=== PATIENT | male | born 1945 | race Caucasian/White ===

== ENCOUNTER 2020-06-21 10:32 | Emergency (ER) | payer OTHER, MEDICARE ==
[~2020-06-21] VITALS: Ht 188 cm; Wt 77.1 kg
[~2020-06-21 10:32] MED LIST: ASPI81EC PO; CLON1 PO; GABA300 PO; OMEP20ER PO; RANI150 PO
[2020-06-21 11:04] LABS: BASOPHILS ABSOLUTE AUTO 0.06 K/mm3 (0.00-0.23); BASOPHILS PERCENT AUTO 1 % (0-2); EOSINOPHILS PERCENT AUTO 3 % (0-6); Hematocrit 41.4 % (37.0-53.0); Hemoglobin 14.1 g/dL (13.5-17.5); IMMATURE GRAN ABSOLUTE AUTO 0.02 K/mm3 (0.00-0.10); IMMATURE GRAN PERCENT AUTO 0 % (0-1); LYMPHOCYTES ABSOLUTE AUTO 2.38 K/mm3 (0.84-5.20); LYMPHOCYTES PERCENT AUTO 30 % (21-46); MONOCYTES ABSOLUTE AUTO 0.86 K/mm3 (0.16-1.47); MONOCYTES PERCENT AUTO 11 % (4-13); Mean Corpuscular HGB 29.6 pg (26.0-34.0); Mean Corpuscular HGB Conc 34.1 g/dL (31.5-36.5); Mean Corpuscular Volume 87 fL (80-100); Mean Platelet Volume 9.2 fL (9.1-12.4); NEUTROPHILS ABSOLUTE AUTO 4.34 K/mm3 (1.96-9.15); NEUTROPHILS PERCENT AUTO 55 % (41-73); Platelet Count 211 K/mm3 (150-400); RDW Standard Deviation 41.6 fL (35.1-46.3); Red Blood Cell Count 4.76 M/mm3 (4.30-5.90); White Blood Cell Count 7.86 K/mm3 (4.00-11.30)
[2020-06-21 11:22] LABS: Alanine Aminotransfer (ALT/SGP 28 U/L (12-78); Albumin, Blood 3.7 g/dL (3.4-5.0); Albumin/Globulin Ratio 0.8 (0.8-1.8); Alk Phos 64 U/L (50-136); Anion Gap 6 mmol/L (6-16); Aspartate Aminotrans (AST/SGOT 25 U/L (12-37); Bilirubin, Total 0.5 mg/dL (0.1-1.0); Blood Urea Nitrogen 11 mg/dL (8-24); Bun/Creatinine Ratio 18.8 (12.0-20.0); CO2, Blood 26 mmol/L (21-32); Calcium, Blood 9.2 mg/dL (8.5-10.1); Chloride, Blood 101 mmol/L (98-108); Creatinine, Blood 0.58 mg/dL (0.60-1.20); Globulin, Blood 4.8 g/dL (2.2-4.0); Glomerular Filtration Rate >60 (60-); Glucose, Blood 127 mg/dL (70-99); Potassium, Blood 3.6 mmol/L (3.5-5.5); Sodium, Blood 133 mmol/L (136-145); Total Protein, Blood 8.5 g/dL (6.4-8.2); Troponin I <0.015 ng/mL (0.000-0.040)
[2020-06-21] MEDS ORDERED: PAROXETINE7.5 MG PO (13:22)
[2020-06-21] MEDS ORDERED: HYDHCL25 PO (13:25)
[2020-06-21] MEDS ORDERED: AMLO5 PO (13:26)
[2020-06-21] MEDS ORDERED: METO25ER PO (13:27)
== END 2020-06-21 14:35 | disposition home or self-care (01) ==
LOC: ER 10:32
PROVIDERS: Emergency Medicine
DX: I10 Essential (primary) hypertension (principal); R07.9 Chest pain, unspecified; Z79.82 Long term (current) use of aspirin; Z79.899 Other long term (current) drug therapy
CPT/HCPCS: 36415; 71046; 80053; 83690; 84484; 85025; 93005; 93010; 99285-25

== ENCOUNTER 2021-11-21 07:45 | Day surgery (SDC) | payer OTHER ==
[~2021-11-21] VITALS: Ht 188 cm; Wt 76.2 kg
[~2021-11-21 07:45] MED LIST changes: +ALBU90OI INH; +AMLO5 PO; +ARTIFICIAL TEA1 EAC1 BOTHEYES; +ASPI325 PO; -ASPI81EC PO; +Aspir 8181 MG PO; +CLON.5 PO; +HYDHCL25 PO; +Lopressor 25 mg25 MG PO; +METO25ER PO; +PAROXETINE7.5 MG PO; +ROSU10TA PO; +VENL75ER PO; +Voltaren100 GM TOP
--- NOTE | 2021-11-21 12:10 | NUR ---
PATIENT RETURNED FROM THE [facility] VIA RECLINER, PLACED ON THE MONITOR AND VVS. SBAR RECEIVED FROM TITA DELGADO. RIGHT RADIAL BAND IN PLACE WITH 17 ML OF AIR IN THE BAND. NO PAIN NOTED FROM THE PAITENT.
[2021-11-21] MEDS ORDERED: CLOP75 PO (12:37)
--- NOTE | 2021-11-21 13:26 | NUR ---
1245 MANUAL PRESSURE HELD TO THE RIGHT RADIAL DISTAL TO THE PRESENT TR BAND DUE TO DEVELOPING HEMATOMA. DECOMPRESSED HEMATOMA. SECOND TR BAND ATTEMPTED. BUT REMOVED AND ORIGINAL TR BAND WAS REPOSITIONED. HEMATOMA WAS RESOLVED. DR. SMITH WAS NOTIFIED. CONTINUE RTO MONITOR.
--- NOTE | 2021-11-21 13:29 | NUR ---
1330 LUNCH SERVED ADN PATIENT ATE. RIGHT RADIAL STABLE AND VVS STABLE ALSO.
--- NOTE | 2021-11-21 15:51 | NUR ---
1500 BEGAN TAKING AIR OUT OF THE TR BAND. OLD HEMATOMA STILL WITH BRUISING, MARKED. NO BLEEDING NOTED.
--- NOTE | 2021-11-21 15:55 | NUR ---
1550 REVIEWED DISCHARGE INSTRUCTIONS WITH THE PATIENT AND HIS . PATIENT WAS GIVEN PLAVIX 300 MG AND DOSE WAS OPENED AND DIVIDED FOR FOUR DOSES. 75 MG PO ORAL DAILY. TR BAND WAS REMOVED AND SITE CLEANED AND WHITE BOARD REPLACED. PATIENT UP OFF MONITOR AND DRESSED. GATHERED ALL BELONGINGS.
--- NOTE | 2021-11-21 16:06 | NUR ---
1600 PATIENT DISCHARGED HOME AMBULATORY WITH .
== END 2021-11-21 15:30 | disposition home or self-care (01) ==
LOC: MHTC 07:45
DX: I25.118 Atherosclerotic heart disease of native coronary artery with other forms of angina pectoris (principal); R06.00 Dyspnea, unspecified; R55 Syncope and collapse; R94.31 Abnormal electrocardiogram [ECG] [EKG]; R94.39 Abnormal result of other cardiovascular function study; I10 Essential (primary) hypertension; E78.5 Hyperlipidemia, unspecified; Z87.891 Personal history of nicotine dependence
CPT/HCPCS: 76937; 85347; 92920; 93454; 93571; 93572; 99152; 99153; A9270; C1725; C1769; C1874; C1887; C1894; C9600; J0360; J1644; J2250; J3010; J7030; J7050; Q9967

== ENCOUNTER 2021-11-23 07:23 | Emergency (ER) | payer OTHER ==
[~2021-11-23] VITALS: Ht 188 cm; Wt 77.1 kg
[~2021-11-23 07:23] MED LIST changes: +CLOP75 PO
[2021-11-23 08:02] LABS: BASOPHILS ABSOLUTE AUTO 0.04 K/mm3 (0.00-0.23); BASOPHILS PERCENT AUTO 1 % (0-2); EOSINOPHILS ABSOLUTE AUTO 0.18 K/mm3 (0.00-0.68); EOSINOPHILS PERCENT AUTO 3 % (0-6); Hematocrit 34.3 % (37.0-53.0); Hemoglobin 12.3 g/dL (13.5-17.5); IMMATURE GRAN ABSOLUTE AUTO 0.02 K/mm3 (0.00-0.10); IMMATURE GRAN PERCENT AUTO 0 % (0-1); LYMPHOCYTES PERCENT AUTO 19 % (21-46); MONOCYTES ABSOLUTE AUTO 0.67 K/mm3 (0.16-1.47); MONOCYTES PERCENT AUTO 9 % (4-13); Mean Corpuscular HGB Conc 35.9 g/dL (31.5-36.5); Mean Corpuscular Volume 86 fL (80-100); Mean Platelet Volume 9.1 fL (9.1-12.4); NEUTROPHILS ABSOLUTE AUTO 4.98 K/mm3 (1.96-9.15); NEUTROPHILS PERCENT AUTO 68 % (41-73); Platelet Count 163 K/mm3 (150-400); RDW Coefficient Variation 13.1 % (11.7-14.2); RDW Standard Deviation 41.4 fL (35.1-46.3); Red Blood Cell Count 3.97 M/mm3 (4.30-5.90); White Blood Cell Count 7.29 K/mm3 (4.00-11.30)
[2021-11-23 08:24] LABS: Alanine Aminotransfer (ALT/SGP 42 U/L (12-78); Albumin, Blood 3.9 g/dL (3.4-5.0); Alk Phos 57 U/L (50-136); Anion Gap 3 mmol/L (6-16); Aspartate Aminotrans (AST/SGOT 31 U/L (12-37); Bilirubin, Total 0.5 mg/dL (0.1-1.0); Blood Urea Nitrogen 12 mg/dL (8-24); Bun/Creatinine Ratio 19.2 (12.0-20.0); CO2, Blood 29 mmol/L (21-32); Calcium, Blood 9.4 mg/dL (8.5-10.1); Chloride, Blood 97 mmol/L (98-108); Creatinine, Blood 0.62 mg/dL (0.60-1.20); Globulin, Blood 3.9 g/dL (2.2-4.0); Glomerular Filtration Rate >60 (60-); Glucose, Blood 115 mg/dL (70-99); Potassium, Blood 4.4 mmol/L (3.5-5.5); Sodium, Blood 129 mmol/L (136-145); Total Protein, Blood 7.8 g/dL (6.4-8.2)
== END 2021-11-23 10:43 | disposition home or self-care (01) ==
LOC: ER 07:23
PROVIDERS: Emergency Medicine
DX: R55 Syncope and collapse (principal); R56.9 Unspecified convulsions; R77.8 Other specified abnormalities of plasma proteins; Z88.8 Allergy status to other drugs, medicaments and biological substances; Z79.899 Other long term (current) drug therapy; Z79.82 Long term (current) use of aspirin; Z86.73 Personal history of transient ischemic attack (TIA), and cerebral infarction without residual deficits
CPT/HCPCS: 36415; 70450; 71045; 80053; 84146; 84484; 85025; 93005; 93010; 99285-25

== ENCOUNTER 2022-01-30 08:22 | Inpatient (IN) | payer OTHER ==
[~2022-01-30] VITALS: Ht 185.4 cm; Wt 75.2 kg
[2022-01-30 08:57] LABS: BASOPHILS ABSOLUTE AUTO 0.03 K/mm3 (0.00-0.23); BASOPHILS PERCENT AUTO 0 % (0-2); EOSINOPHILS ABSOLUTE AUTO 0.01 K/mm3 (0.00-0.68); EOSINOPHILS PERCENT AUTO 0 % (0-6); Hematocrit 36.5 % (37.0-53.0); Hemoglobin 12.8 g/dL (13.5-17.5); IMMATURE GRAN ABSOLUTE AUTO 0.02 K/mm3 (0.00-0.10); IMMATURE GRAN PERCENT AUTO 0 % (0-1); LYMPHOCYTES ABSOLUTE AUTO 0.89 K/mm3 (0.84-5.20); LYMPHOCYTES PERCENT AUTO 12 % (21-46); MONOCYTES ABSOLUTE AUTO 0.47 K/mm3 (0.16-1.47); MONOCYTES PERCENT AUTO 6 % (4-13); Mean Corpuscular HGB 30.5 pg (26.0-34.0); Mean Corpuscular HGB Conc 35.1 g/dL (31.5-36.5); Mean Corpuscular Volume 87 fL (80-100); Mean Platelet Volume 9.8 fL (9.1-12.4); NEUTROPHILS ABSOLUTE AUTO 6.24 K/mm3 (1.96-9.15); NEUTROPHILS PERCENT AUTO 82 % (41-73); Platelet Count 189 K/mm3 (150-400); RDW Coefficient Variation 13.2 % (11.7-14.2); RDW Standard Deviation 42.1 fL (35.1-46.3); Red Blood Cell Count 4.19 M/mm3 (4.30-5.90); White Blood Cell Count 7.66 K/mm3 (4.00-11.30)
[2022-01-30 09:22] LABS: Magnesium, Blood 2.3 mg/dL (1.6-2.4)
[2022-01-30 09:23] LABS: Albumin, Blood 3.9 g/dL (3.4-5.0); Albumin/Globulin Ratio 0.9 (0.8-1.8); Bilirubin, Total 0.5 mg/dL (0.1-1.0); Bun/Creatinine Ratio 16.6 (12.0-20.0); Calcium, Blood 9.5 mg/dL (8.5-10.1); Creatinine, Blood 0.6 mg/dL (0.60-1.20); Globulin, Blood 4.4 g/dL (2.2-4.0); Potassium, Blood 5.1 mmol/L (3.5-5.5); Total Protein, Blood 8.3 g/dL (6.4-8.2)
--- NOTE | 2022-01-30 17:27 | NUR ---
BLADDER SCAN NOTE PT WAS EXPRESSING URGE TO VOID BUT INABILITY TO VOID UPON ARRIVAL TO PCU, THIS NURSE BLADDER SCANNED PT AND PER BLADDER SCAN, PT HAD >999ML. THIS NURSE CALLED DR. SANTACRUZ TO NOTIFY WITH NO ANSWER. BLADDER SCAN OCCURED AT 1725.
[2022-01-30 17:57] LABS: Appearance, Urine Clear (Clear); Bilirubin, Urine Neg (Neg); Blood, Urine 4+ (Neg); Color, Urine Yellow (P-Yellow); Glucose Qualitative, Urine Neg (Neg); Ketones, Urine Neg (Neg); Leukocyte Esterase, Urine Neg (Neg); Nitrite, Urine Neg (Neg); Protein, Urine 3+ (Neg); Urobilinogen, Urine NORM (Normal)
[2022-01-30 18:07] LABS: Bacteria Rare /hpf; Squamous Epithelial Cells Rare /hpf (Few); White Blood Cells, Urine 0-2 /hpf (0-5)
[2022-01-30 18:10] LABS: U Amphetamine Screen Not Detected; U Barbituate Screen Not Detected; U Benzodiazapine Screen DETECTED; U Buprenorphine Screen Not Detected; U Cannabinoids Screen DETECTED; U Cocaine Screen Not Detected; U Methadone Screen Not Detected; U Methamphetamine Screen Not Detected; U Opiates Screen Not Detected; U Oxycodone Screen Not Detected; U Phencyclidine Screen Not Detected; U Propoxyphene Screen Not Detected
--- NOTE | 2022-01-30 19:04 | NUR ---
SHIFT SUMMARY PT ARRIVED TO PCU AT 1700, WAS AT BEDSIDE. HR IN 90-110'S PER TELE REPORT. BP STABLE, SPO2 >95% VIA ROOM AIR. HE WAS ALERT TO SELF, PLACE, AND BUT DID NOT KNOW THE DAY. UP ADMISSION TO PCU PT KEPT SAYING THAT HE NEEDED TO URINATE BUT COULD NOT. THIS NURSE BLADDER SCANNED PT, SEE PREVIOUS NOTE. QUEZADA CATHETER IS IN PLACE AND DRAINING WITH GRAVITY. PT HAS A LEFT AC IV AND A RIGHT FOREARM IV THAT IS SALINE LOCKED. SIEZURE PRECAUTIONS TAKEN. SINCE QUEZADA PLACEMENT, PT HAS BEEN SLEEPING AND APPEARS COMFORTABLE. CALL [facility] IN [place], BED ALARM ON. REPORT GIVEN TO RODNEY RIVERS.
[2022-01-31 04:14] LABS: BASOPHILS ABSOLUTE AUTO 0.04 K/mm3 (0.00-0.23); BASOPHILS PERCENT AUTO 1 % (0-2); EOSINOPHILS ABSOLUTE AUTO 0.03 K/mm3 (0.00-0.68); EOSINOPHILS PERCENT AUTO 0 % (0-6); Hematocrit 33.7 % (37.0-53.0); Hemoglobin 11.7 g/dL (13.5-17.5); IMMATURE GRAN ABSOLUTE AUTO 0.02 K/mm3 (0.00-0.10); IMMATURE GRAN PERCENT AUTO 0 % (0-1); LYMPHOCYTES ABSOLUTE AUTO 1.57 K/mm3 (0.84-5.20); LYMPHOCYTES PERCENT AUTO 18 % (21-46); MONOCYTES ABSOLUTE AUTO 1.01 K/mm3 (0.16-1.47); MONOCYTES PERCENT AUTO 12 % (4-13); Mean Corpuscular HGB 30.4 pg (26.0-34.0); Mean Corpuscular HGB Conc 34.7 g/dL (31.5-36.5); Mean Corpuscular Volume 88 fL (80-100); Mean Platelet Volume 9.3 fL (9.1-12.4); NEUTROPHILS ABSOLUTE AUTO 5.89 K/mm3 (1.96-9.15); NEUTROPHILS PERCENT AUTO 69 % (41-73); Platelet Count 160 K/mm3 (150-400); RDW Coefficient Variation 13.4 % (11.7-14.2); RDW Standard Deviation 42.5 fL (35.1-46.3); Red Blood Cell Count 3.85 M/mm3 (4.30-5.90); White Blood Cell Count 8.56 K/mm3 (4.00-11.30)
[2022-01-31 04:42] LABS: Albumin, Blood 3.5 g/dL (3.4-5.0); Bilirubin, Total 0.9 mg/dL (0.1-1.0); Bun/Creatinine Ratio 11.9 (12.0-20.0); Calcium, Blood 9.1 mg/dL (8.5-10.1); Creatinine, Blood 0.67 mg/dL (0.60-1.20); Globulin, Blood 3.6 g/dL (2.2-4.0); Magnesium, Blood 2.2 mg/dL (1.6-2.4); Potassium, Blood 3.6 mmol/L (3.5-5.5); Total Protein, Blood 7.1 g/dL (6.4-8.2)
--- NOTE | 2022-01-31 05:40 | NUR ---
PROJECT SAFETY MANAGER SUMMARY PT IS AXO X3 BUT DOES NOT KNOW THE DATE OR WHY HE IS IN THE HOSPITAL. THE PT HAS HAD NO SEIZURE ACTIVITY THIS SHIFT AND SLEPT FOR MOST OF THE NIGHT. TELE SHOWING SR IN THE 80'S W OCCASIONAL PVC'S. BP WNL AND STABLE. PT AFEBRILE. O2 SATS >92% ON RM AIR. NS RUNNING AT 125ML/HR. QUEZADA PATENT AND DRAINING CLEAR YELLOW URINE, DOOD OUTPUT THIS SHIFT SEE I&O'S FOR DETAILS. WILL REPORT TO ONCOMING RN.
[2022-01-31] MEDS ORDERED: LEVETIRACETAM1000 M1 PO (15:13)
== END 2022-01-31 15:51 | disposition home or self-care (01) | DRG 100 ==
LOC: ER 08:22 → PCU 14:03
PROVIDERS: Nurse Practitioner Acute Care; Physician Assistant; ADMIT Internal Medicine
DX: G40.901 Epilepsy, unspecified, not intractable, with status epilepticus (principal); G92.8 Other toxic encephalopathy; I10 Essential (primary) hypertension; F41.9 Anxiety disorder, unspecified; K21.9 Gastro-esophageal reflux disease without esophagitis; I25.10 Atherosclerotic heart disease of native coronary artery without angina pectoris; E86.0 Dehydration; E78.5 Hyperlipidemia, unspecified; Z86.73 Personal history of transient ischemic attack (TIA), and cerebral infarction without residual deficits; Z95.5 Presence of coronary angioplasty implant and graft; Z79.02 Long term (current) use of antithrombotics/antiplatelets; Z79.82 Long term (current) use of aspirin; Z79.899 Other long term (current) drug therapy; Z88.6 Allergy status to analgesic agent; Z88.8 Allergy status to other drugs, medicaments and biological substances
CPT/HCPCS: 36415; 70450; 70553; 71045; 80053; 81001; 83735; 84146; 84443; 85025; 93005; 93010; 94762; 95819; 96365; 96375; 99285-25; A9270; A9579; J1953; J2060; J7030

== ENCOUNTER 2022-09-11 05:45 | Inpatient (IN) | payer OTHER ==
[~2022-09-11] VITALS: Ht 188 cm; Wt 76.9 kg
[~2022-09-11 05:45] MED LIST changes: +ASPI81CH PO; +Amlodipine Bes2.5 MG PO; +ENOX40I SC; +HYDR1TAB94 PO; +LEVETIRACETAM1000 M1 PO; +MIRALAX1713 PO; +TRAM50 PO
--- NOTE | 2022-09-11 06:30 | NUR ---
PT AMB TO DAY SURGERY USING WALKING WITH SLOW STEADY GAIT. PRESENT WITH PT. History, Chart, Medications and Allergies reviewed before start of procedure. Patient confirms NPO status and agrees with scheduled surgery. Pre-Op teaching done. Pt verbalizes understanding. Patient reports completing Chlorhexadine shower X2 prior to admission to hospital.
--- NOTE | 2022-09-11 07:30 | NUR ---
PT TAKEN BACK TO OR 4 BY WES Minor RN, PT GLASSES AND UPPER AND LOWER DENTURES PLACED IN TRAY IN RECOVERY ROOM ALONG WITH HIS WALKER AND BAG WITH HIS COAT.
--- NOTE | 2022-09-11 10:18 | NUR ---
09/11/22 1018 Divya Vega 18G IN RIGHT HAND AND 20G IN LEFT HAND BY KEYANA PEREA @ 1000. 2 UNITS OF BLOOD GIVEN, TYPE AND CROSS REDRAWN.
--- NOTE | 2022-09-11 14:57 | NUR ---
LATE ENTRY- PT TO PACU AFTER LONG SURGERY. ACP AND SURGEON DEEMED PT STABLE ENOUGH TO BE RECOVERED HERE IN PACU. PT HAD PREVIOUSLY BEEN CHANGED FROM SURGICAL FLOOR STATUS TO ICU STATUS AND A BED HAD BEEN SECURED. ONCE IN PACU PT BP TRENDING DOWN, MAP 50-60S, SATS GOOD ON RA, DRESSING ON LEFT HIP DRY AND INTACT WITH FOAM TAPE. FLUIDS WERE WIDE OPEN AND ANOTHER LR HUNG. PT PALE IN APPEARANCE AND SKIN COOL, HOB DOWN, PT VERY WIGGLY IN BED AND ADVISED TO LIE STILL. ADDUCTOR PILLOW WITH STRAPS ORDERED, AND SURGEON CHANGED STATUS BACK TO ICU. ICU AND URBAN ANTHROPOLOGIST NOTIFIED, AND SURGEON ORDERED STAT CT/ANGIOGRAM. I ACCOMPANIED PT TO RADIOLOGY WITH CONTINIOUS MONITORING IN PLACE. CT/ANGIOGRAM COMPLETED AND PT APPEARED TO HAVE TOLERATED THE PROCEDURE WELL. PT TALKING DURING ICU TRANSPORT. ONCE TO ICU PT JOKING WITH STAFF AND VSS. BLOOD PRESSURES MUCH BETTER AND PT'S COLOR IMPROVED. GUEST HOUSE MANAGER'S QUESTIONING WHETHER OR NOT PT NEEDS TO BE ICU STATUS. A CALL TO DR. MCCRAY WAS PLACED. DR MCCRAY NOTIFIED OF PT'S IMPROVED STATUS. DR MCCRAY OKAY SIVLIA PT BEING SENT TO SURGICAL FLOOR AFTER ALL. PT WAS THEN TRANSFERED TO SURGICAL FLOOR BY MYSELF AND DAVID GUEST HOUSE MANAGER. REPORT GIVEN TO SURGICAL FLOOR SERVICE ATTENDANT CAFETERIA. PT LEFT HIP DRESSING D&I, SCDS ON, CAP REFILL <3SEC, AND PEDAL PULSE WAS PALPABLE. BELONGINGS, TEETH, AND WALKER WERE BROUGHT TO ROOM, PTS AT BEDSIDE, POLAR PAC PROVIDED. PTS VSS, SURGICAL FLOOR RN TO ORDER STAT H&H, PT IN STABLE CONDITION UPON TRANSFERING.
[2022-09-11 15:33] LABS: Hematocrit 27.6 % (37.0-53.0); Hemoglobin 9.4 g/dL (13.5-17.5)
--- NOTE | 2022-09-11 16:15 | NUR ---
NO PEDAL PULSES W/PALPATION. UNABLE TO LOCATE WITH DOPPLER EITHER. DR GUEVARA NOTIFIED. DR GUEVARA IN CONTACT WITH DR MCCRAY, PLAN TO TX HIGHER LEVEL OF CARE FOR VASCULAR SURGEON OR INTERVENTIONAL RADIOLOGY. IMAGES PUSHED TO LAURE LLOYD AND DEXTER ESCOBEDO.
--- NOTE | 2022-09-11 19:30 | NUR ---
SHIFT SUMMARY PT HAS REMAINED STABLE SINCE ARRIVAL TO UNIT. MEASURMENT TO L THIGH AT 1800 53 CM, THIGH WITH SOME SWELLING SINCE ARRIVAL, NO INCREASED PAIN W/PALPATION. VSS. PT REPORTS PAIN5/10. HIP ABDUCTOR PILLOW IN PLACE PER MD ORDER, NWB AT THIS TIME. QUEZADA PATENT, DRAINING CLEAR YELLOW URINE. SCD AND POLAR PACK IN PLACE. PLAN AT THIS TIME IS TO CONTINUE TO MONITOR VS AND HGB, CONTINUE TO CHECK MEASURMENTS TO L THIGH Q4H.
[2022-09-11 22:09] LABS: Hematocrit 23.1 % (37.0-53.0); Hemoglobin 8.2 g/dL (13.5-17.5)
--- NOTE | 2022-09-12 01:26 | NUR ---
LEFT THIGH MEASURING 54CM. PT CONT TO REPORT MINIMAL PAIN. LEFT THIGH IS PINK, WARM, AND SOFT TO THE TOUCH. NO BRUISING OR BLEEDING NOTED. PT'S LEFT FOOT FEELS WARMER THAN IT DID AT START OF SHIFT. PEDAL PULSE STILL FAINT, BUT PALPABLE. PT BOOSTED IN BED FOR COMFORT. WILL CONT TO MONITOR.
[2022-09-12 04:46] LABS: BASOPHILS ABSOLUTE AUTO 0.03 K/mm3 (0.00-0.23); BASOPHILS PERCENT AUTO 0 % (0-2); EOSINOPHILS ABSOLUTE AUTO 0.01 K/mm3 (0.00-0.68); EOSINOPHILS PERCENT AUTO 0 % (0-6); Hematocrit 20.5 % (37.0-53.0); Hemoglobin 7.2 g/dL (13.5-17.5); IMMATURE GRAN ABSOLUTE AUTO 0.03 K/mm3 (0.00-0.10); IMMATURE GRAN PERCENT AUTO 0 % (0-1); LYMPHOCYTES ABSOLUTE AUTO 2.32 K/mm3 (0.84-5.20); LYMPHOCYTES PERCENT AUTO 21 % (21-46); MONOCYTES ABSOLUTE AUTO 1.16 K/mm3 (0.16-1.47); MONOCYTES PERCENT AUTO 11 % (4-13); Mean Corpuscular HGB Conc 35.1 g/dL (31.5-36.5); Mean Corpuscular Volume 83 fL (80-100); NEUTROPHILS ABSOLUTE AUTO 7.28 K/mm3 (1.96-9.15); NEUTROPHILS PERCENT AUTO 67 % (41-73); Platelet Count 116 K/mm3 (150-400); RDW Coefficient Variation 16.3 % (11.7-14.2); RDW Standard Deviation 48.9 fL (35.1-46.3); Red Blood Cell Count 2.48 M/mm3 (4.30-5.90); White Blood Cell Count 10.83 K/mm3 (4.00-11.30)
--- NOTE | 2022-09-12 04:51 | NUR ---
SHIFT SUMMARY NO ACUTE CHANGES THIS SHIFT. L THIGH CIRCUMFERENCE IS AT 54CM. LEFT LEG REMAINS PINK, WARM, AND SOFT TO THE TOUCH. DRESSING TO LEFT HIP REMAINS CDI WITH POLAR PACK IN PLACE. 2 ROXICODONE + TYLENOL FOR PAIN MANAGEMENT. NAUSEA X1 AND ZOFRAN EFFECTIVE. QUEZADA DRAINING YELLOW URINE. TELE IN PLACE. USES CALL LIGHT APPROPRIATELY.
[2022-09-12 05:37] LABS: Bun/Creatinine Ratio 19.7 (12.0-20.0); Calcium, Blood 8.1 mg/dL (8.5-10.1); Creatinine, Blood 0.71 mg/dL (0.60-1.20); Magnesium, Blood 1.5 mg/dL (1.6-2.4); Potassium, Blood 4.3 mmol/L (3.5-5.5)
--- NOTE | 2022-09-12 10:55 | NUR ---
AT 0919 RECIEVED CALL FROM TELEMETRY, PT WITH NEW RUN OF TRAVIS STARTING AT 0901 AND SUSTAINING. VS OBTAINED, HR IN 40'S, PT DENIES CP, REPORTS "NOT FEELING WELL" BUT FEELS IT IS MORE RELATED TO PAIN MEDICATION. DR GUEVARA NOTIFED, NEW ORDER TO TRANSFUSE 1 UNIT PRBC. ORDER FOR EKG THAT WAS DONE AND RESULTS CALLED TO PAOLA-ORIGINAL ON FRONT OF CHART. MEASURMENTS ON L LEG MID THIGH 55CM. INCREASED FIRMNESS BUT HAS NO INCREASED PAIN OTHER THAN AT INSERTION SITE. DRESSING C/D/I. FAINT PEDAL PULSE PRESENT IN LLE. FOOT COOL BUT WARMER THEN LAST NIGHT. PT COLOR IMPROVED. BLOOD TRANSFUSING AT THIS TIME.
[2022-09-12 15:09] LABS: Hematocrit 22.1 % (37.0-53.0); Hemoglobin 7.9 g/dL (13.5-17.5)
--- NOTE | 2022-09-12 17:50 | NUR ---
SIMONE DOPPLER STUDY ON LLE NEGATIVE
--- NOTE | 2022-09-12 19:19 | NUR ---
SHIFT SUMMARY PT POD 1 L TKA W/FEMORAL ARTERY BLEED. LEG CIRCUMFENCE 55CM. PT HAS BEEN PAINFUL, TRIALED NORCO WITH LITTLE IMPROVEMENT SO WILL TRY 10MG ROXICODONE AND TYLENOL AGIAN OVER NIGHT. PT WORKED WITH PT, UP TO CHAIR. ABDUCTOR PILLOW FOR SLEEP.
--- NOTE | 2022-09-13 00:39 | NUR ---
LEFT THIGH CIRCUMFERENCE REMAINS AT 56CM.
--- NOTE | 2022-09-13 04:45 | NUR ---
SHIFT SUMMARY NO ACUTE CHANGES THIS SHIFT. PT RESTED WELL. 2 ROXICODONE + TYLENOL FOR PAIN MANAGEMENT. POLAR PACK IN PLACE. LEFT HIP DRESSING REMAINS CDI. ADDUCTOR PILLOW IN PLACE WHILE SLEEPING. USING URINAL TO VOID. LEFT THIGH CIRCUMFERENCE REMAINS AT 56CM. USES CALL LIGHT APPROPRIATELY.
[2022-09-13 05:10] LABS: BASOPHILS ABSOLUTE AUTO 0.03 K/mm3 (0.00-0.23); BASOPHILS PERCENT AUTO 0 % (0-2); EOSINOPHILS ABSOLUTE AUTO 0.02 K/mm3 (0.00-0.68); EOSINOPHILS PERCENT AUTO 0 % (0-6); Hematocrit 18.8 % (37.0-53.0); Hemoglobin 6.7 g/dL (13.5-17.5); IMMATURE GRAN ABSOLUTE AUTO 0.03 K/mm3 (0.00-0.10); IMMATURE GRAN PERCENT AUTO 0 % (0-1); LYMPHOCYTES ABSOLUTE AUTO 1.85 K/mm3 (0.84-5.20); LYMPHOCYTES PERCENT AUTO 20 % (21-46); MONOCYTES ABSOLUTE AUTO 1.07 K/mm3 (0.16-1.47); MONOCYTES PERCENT AUTO 12 % (4-13); Mean Corpuscular HGB 29.3 pg (26.0-34.0); Mean Corpuscular HGB Conc 35.6 g/dL (31.5-36.5); Mean Corpuscular Volume 82 fL (80-100); Mean Platelet Volume 9.6 fL (9.1-12.4); NEUTROPHILS ABSOLUTE AUTO 6.29 K/mm3 (1.96-9.15); NEUTROPHILS PERCENT AUTO 68 % (41-73); Platelet Count 107 K/mm3 (150-400); RDW Coefficient Variation 15.8 % (11.7-14.2); RDW Standard Deviation 46.7 fL (35.1-46.3); Red Blood Cell Count 2.29 M/mm3 (4.30-5.90); White Blood Cell Count 9.29 K/mm3 (4.00-11.30)
[2022-09-13 05:42] LABS: Bun/Creatinine Ratio 18.9 (12.0-20.0); Calcium, Blood 8.4 mg/dL (8.5-10.1); Creatinine, Blood 0.64 mg/dL (0.60-1.20); Magnesium, Blood 1.7 mg/dL (1.6-2.4); Potassium, Blood 4.1 mmol/L (3.5-5.5)
[2022-09-13 17:44] LABS: Hematocrit 24.8 % (37.0-53.0); Hemoglobin 8.8 g/dL (13.5-17.5)
--- NOTE | 2022-09-13 18:59 | NUR ---
SHIFT SUMMARY PT A&OX4/ST108, POD2 L DAMIÁN, SURGICAL DRESSING DRY/INTACT, POSTERIOR PRECAUTIONS ABDUCTOR PILLOW IN PLACE. VOIDING/URINAL. PAIN MANAGED WITH OXY 10MG AND TYLENOL. PT RUSTY 1 UNIT PRBC THIS AM, WORKED WITH PHYSICAL AND OCCUPATIONAL THERAPY TODAY, UP TO CHAIR FOR SHORT TIME, REPORTS EXHAUSTION AFTER LUNCH SO BACK TO BED FOR LONG NAP. EDU/ENC/DEMONSTRATED INCENTIVE SPIROMETER AND PT REP UNDERSTANDING THE VALUE. WILL REPORT TO JENNY KAYE RN. REPORT PROVIDED TO SHANE RIVERS.
--- NOTE | 2022-09-14 01:45 | NUR ---
INCLUSION INTERN CALLED NURSE TO STATING PT HAD GOTTEN SELF OOB TO VOID AND DID NOT CALL FOR ASSIST.PT ALREADY IN BED WHEN I ENTERED ROOM.WHEN QUESTIONED, PT VERB HE KNOWS HE SHOULD HAVE CALLED, BUT WAS HURRYING TO VOID.PT STATES OOB AND BACK WITHOUT INCIDENT. NO PHYSICAL APPEARANCE OF CHANGE. REPLACED ABDUCTOR PILLOW AND TURNED BED ALARM ON FOR SAFETY.I DISCUSSED RISKS AND I QUESTIONED PT HE WAS ABLE TO ANSWER ALL APPROPRIATELY EXCEPT YEAR,THEN EVENTUALLY WAS ABLE TO COME UP WITH CORRECT YEAR WITH COAXING.PT TOOK KLONOPIN AT AND I QUESTION WHETHER INCIDENT COULD BE RELATED. WILL PASS INFO TO NEXT SHIFT.I NOTIFIED HELP DESK REP AND NURSING GENERAL OFFICE DISPATCHER FAVIAN RIVERS.
[2022-09-14 04:20] LABS: BASOPHILS ABSOLUTE AUTO 0.02 K/mm3 (0.00-0.23); BASOPHILS PERCENT AUTO 0 % (0-2); EOSINOPHILS ABSOLUTE AUTO 0.15 K/mm3 (0.00-0.68); EOSINOPHILS PERCENT AUTO 2 % (0-6); Hematocrit 23.2 % (37.0-53.0); Hemoglobin 8.3 g/dL (13.5-17.5); IMMATURE GRAN ABSOLUTE AUTO 0.05 K/mm3 (0.00-0.10); IMMATURE GRAN PERCENT AUTO 1 % (0-1); LYMPHOCYTES ABSOLUTE AUTO 1.56 K/mm3 (0.84-5.20); LYMPHOCYTES PERCENT AUTO 16 % (21-46); MONOCYTES ABSOLUTE AUTO 1.07 K/mm3 (0.16-1.47); MONOCYTES PERCENT AUTO 11 % (4-13); Mean Corpuscular HGB Conc 35.8 g/dL (31.5-36.5); Mean Corpuscular Volume 84 fL (80-100); Mean Platelet Volume 9.5 fL (9.1-12.4); NEUTROPHILS ABSOLUTE AUTO 6.71 K/mm3 (1.96-9.15); NEUTROPHILS PERCENT AUTO 70 % (41-73); Platelet Count 128 K/mm3 (150-400); RDW Coefficient Variation 15.2 % (11.7-14.2); RDW Standard Deviation 45.9 fL (35.1-46.3); Red Blood Cell Count 2.77 M/mm3 (4.30-5.90); White Blood Cell Count 9.56 K/mm3 (4.00-11.30)
--- NOTE | 2022-09-14 06:15 | NUR ---
SUMMARY PT REMAINS ALERT AND ORIENTED.NO FURTHER ATTEMPTS OOB AND HAS BEEN APPROPRIATE.NO BLEED FROM INC.VSS HAS HAD HTN
--- NOTE | 2022-09-14 07:29 | NUR ---
DAY RN AWARE OF POSSIBILITY KLONOPIN MAY HAVE BEEN PARTIALLY RESPONSIBLE FOR MILD CONFUSION AND AGREES TO LET DR KNOW.
--- NOTE | 2022-09-14 09:54 | NUR ---
"Spiritual Care | Nurse referral Pt. is awake sitting up in a recliner when he welcomes my visit. Pt. is pleasant, but unsettled about wanting to go home. Pt. displays evidence of being engaged in his recovery. Establish rapport and facilite a life review. Spouse arrives during visit. Prayed with Pt. Pt. verbalized gratitude for the spiritual care visit."
--- NOTE | 2022-09-14 18:01 | NUR ---
SHIFT SUMMARY PT A&OX4, VSS/RA, RUSTY PO, VOIDING/URINAL, AMB TO BRP AND INTO HALLWAY/UP TO CHAIR T/O SHIFT WITH BLE ELEVATED; ADD PILLOW BETWEEN BLE WHILE IN BED, TEDS/SCDS/POLAR GLENNY, PAIN MANAGED WITH TYLENOL AND OXY 5 MG PER EMAR. POD3 L DAMIÁN, AQUACEL CDI, LEFT THIGH 54 CM, LIGHT BRUISING, DENIES N&T. BOWEL CARE PROVIDED: AWAITING BM TO VERIFY THERE IS NO BLOOD, THEN THE PT WILL BE DC'D HOME WITH . WILL PROVIDE REPORT TO JENNY KAYE RN.
[2022-09-15 05:21] LABS: BASOPHILS ABSOLUTE AUTO 0.02 K/mm3 (0.00-0.23); BASOPHILS PERCENT AUTO 0 % (0-2); EOSINOPHILS PERCENT AUTO 1 % (0-6); Hematocrit 21.3 % (37.0-53.0); Hemoglobin 7.6 g/dL (13.5-17.5); IMMATURE GRAN ABSOLUTE AUTO 0.03 K/mm3 (0.00-0.10); IMMATURE GRAN PERCENT AUTO 0 % (0-1); LYMPHOCYTES ABSOLUTE AUTO 1.33 K/mm3 (0.84-5.20); LYMPHOCYTES PERCENT AUTO 18 % (21-46); MONOCYTES ABSOLUTE AUTO 0.96 K/mm3 (0.16-1.47); MONOCYTES PERCENT AUTO 13 % (4-13); Mean Corpuscular HGB 29.6 pg (26.0-34.0); Mean Corpuscular HGB Conc 35.7 g/dL (31.5-36.5); Mean Corpuscular Volume 83 fL (80-100); Mean Platelet Volume 9.5 fL (9.1-12.4); NEUTROPHILS ABSOLUTE AUTO 4.91 K/mm3 (1.96-9.15); NEUTROPHILS PERCENT AUTO 67 % (41-73); Platelet Count 146 K/mm3 (150-400); RDW Standard Deviation 44.9 fL (35.1-46.3); Red Blood Cell Count 2.57 M/mm3 (4.30-5.90); White Blood Cell Count 7.35 K/mm3 (4.00-11.30)
--- NOTE | 2022-09-15 07:54 | NUR ---
SUMMARY PT HOPING FOR DISCHARGE SOON. NO CONFUSION LAST NIGHT.NO BM THIS SHIFT.
[2022-09-15 08:50] LABS: Percent Saturation 8.7 % (20.0-50.0)
[2022-09-15 12:29] LABS: Hematocrit 23.4 % (37.0-53.0); Hemoglobin 8.1 g/dL (13.5-17.5)
--- NOTE | 2022-09-15 13:20 | NUR ---
Pt. is sitting up in a recliner and welcomes my visit. Pt. is pleasant and spouse is present. Facilitate life review and re-establish rapport. Pt. is unsettled byt the wait for discharge. Listen with empathy and a calming presence. Pt. displayed evidence of a renewed confidence and verbalized that he has had prooblems with his hip for many months. Prayed for the Pt. and spouse. Pt. verbalized gratitude for the spiritual care visit.
[2022-09-15] MEDS ORDERED: AMLO5 PO (13:22)
[2022-09-15] MEDS ORDERED: METO50ER PO (13:23)
[2022-09-15] MEDS ORDERED: DOCU100 PO (13:24)
[2022-09-15] MEDS ORDERED: ACET500 PO (13:24)
[2022-09-15] MEDS ORDERED: MIRALAX17 GM PO (13:24)
[2022-09-15] MEDS ORDERED: SENNA LAXATIVE8.6 MG PO (13:25)
--- NOTE | 2022-09-15 13:55 | NUR ---
DISCHARGE NOTE: PATIENT WAS EDUCATED ON DISCHARGE INSTRUCTIONS. HE VERBALIZED UNDERSTANDING OF INSTRUCTIONS AND HAD NO FURTHER QUESTIONS AT THIS TIME. PAIN IS MEDICATED WITH PO TYLENOL. HIS LEFT HIP HAS AN AQUACEL THAT IS C/D/I. DENIES NUMBNESS OR TINGLING. HE IS TOLERATING PO INTAKE AND IS VOIDING/DID HAVE A BM. HIS NEW PERSCRIPTIONS WERE SENT TO HIS PREFERRED PHARMACY WHICH WAS THE [place]. HE IS DRESSED AND HAS PERSONAL ITEMS IN THE ROOM GATHERED. HIS IVS WERE BOTH TAKEN OUT AND WNL. HE IS BEING WHEELCHAIRED OUT TO HIS WIFES CAR TO BE TAKEN HOME.
== END 2022-09-15 13:59 | disposition home health service (06) | DRG 522 ==
LOC: SURS 05:45 → PRE IP 07:30 → ICUW 14:06 → SURS 15:07
PROVIDERS: Internal Medicine; ADMIT Orthopaedic Surgery
PROC: 30233N1 Transfusion of Nonautologous Red Blood Cells into Peripheral Vein, Percutaneous Approach (ICD-10-PCS; 2022-09-11)
PROC: 0SR904A Replacement of Right Hip Joint with Ceramic on Polyethylene Synthetic Substitute, Uncemented, Open Approach (ICD-10-PCS; principal; 2022-09-11 07:30)
PROC: 30233N1 Transfusion of Nonautologous Red Blood Cells into Peripheral Vein, Percutaneous Approach (ICD-10-PCS; 2022-09-13)
DX: S72.031A Displaced midcervical fracture of right femur, initial encounter for closed fracture (principal); M96.840 Postprocedural hematoma of a musculoskeletal structure following a musculoskeletal system procedure; D62 Acute posthemorrhagic anemia; N40.0 Benign prostatic hyperplasia without lower urinary tract symptoms; I10 Essential (primary) hypertension; I77.1 Stricture of artery; K21.9 Gastro-esophageal reflux disease without esophagitis; E78.5 Hyperlipidemia, unspecified; F43.10 Post-traumatic stress disorder, unspecified; G40.909 Epilepsy, unspecified, not intractable, without status epilepticus; F32.A Depression, unspecified; F41.9 Anxiety disorder, unspecified; I65.22 Occlusion and stenosis of left carotid artery; I25.10 Atherosclerotic heart disease of native coronary artery without angina pectoris; M19.90 Unspecified osteoarthritis, unspecified site; R73.01 Impaired fasting glucose; Z87.891 Personal history of nicotine dependence; Z90.49 Acquired absence of other specified parts of digestive tract; Z98.890 Other specified postprocedural states; Z88.8 Allergy status to other drugs, medicaments and biological substances; Z79.82 Long term (current) use of aspirin; Z79.899 Other long term (current) drug therapy; W18.39XA Other fall on same level, initial encounter
CPT/HCPCS: 36415; 72170; 73706; 80048; 82728; 83540; 83550; 83735; 85014; 85018; 85025; 86850; 86900; 86901; 86920; 86923; 93005; 93010; 93922; 93926; 93971; 97110; 97110-CQ; 97116; 97116-CQ; 97162; 97166; 97530; 97535; A9270; C1713; C1776; J0171; J0690; J0735; J1100; J1885; J2250; J2370; J2405; J2704; J2765; J2795; J2916; J3010; J3475; J7050; J7120; P9016; Q9967

== ENCOUNTER 2022-10-10 15:14 | Day surgery (SDC) | payer OTHER ==
[~2022-10-10] VITALS: Ht 185.4 cm; Wt 76.0 kg
[~2022-10-10 15:14] MED LIST changes: +ACET500 PO; +DOCU100 PO; +METO50ER PO; +MIRALAX17 GM PO; +SENNA LAXATIVE8.6 MG PO
== END 2022-10-10 17:01 | disposition home or self-care (01) ==
LOC: ORSCSDS 15:14
PROVIDERS: Ophthalmology
PROC: 08DJ3ZZ Extraction of Right Lens, Percutaneous Approach (ICD-10-PCS; principal; 2022-10-10 16:30)
DX: H25.11 Age-related nuclear cataract, right eye (principal); Z96.1 Presence of intraocular lens; I10 Essential (primary) hypertension; R56.9 Unspecified convulsions; I62.9 Nontraumatic intracranial hemorrhage, unspecified; I25.10 Atherosclerotic heart disease of native coronary artery without angina pectoris; Z87.891 Personal history of nicotine dependence; Z79.899 Other long term (current) drug therapy
CPT/HCPCS: J2001; J2250; J3010; J3301; J7040; V2632

== ENCOUNTER 2023-10-11 04:36 | Emergency (ER) | payer OTHER ==
[~2023-10-11] VITALS: Ht 185.4 cm; Wt 77.1 kg
[2023-10-11] MEDS ORDERED: METO25 PO (04:57)
[2023-10-11] MEDS ORDERED: Crestor20 MG PO (04:58)
[2023-10-11] MEDS ORDERED: Ranitidine HCl150 M1 PO (04:58)
[2023-10-11] MEDS ORDERED: SODCHL1 PO (04:59)
[2023-10-11] MEDS ORDERED: levETIRAcetam 1,000 MG in NS 100 ML IV ONE (05:00)
[2023-10-11] MEDS ORDERED: NS 1,000 ML IV SCH (05:00)
[2023-10-11 05:02] LABS: Source, Urine Clean Catch
[2023-10-11 05:05] LABS: BASOPHILS ABSOLUTE AUTO 0.04 K/mm3 (0.00-0.23); BASOPHILS PERCENT AUTO 1 % (0-2); EOSINOPHILS PERCENT AUTO 4 % (0-6); Hematocrit 34.3 % (37.0-53.0); Hemoglobin 11.9 g/dL (13.5-17.5); IMMATURE GRAN ABSOLUTE AUTO 0.02 K/mm3 (0.00-0.10); IMMATURE GRAN PERCENT AUTO 0 % (0-1); LYMPHOCYTES ABSOLUTE AUTO 1.59 K/mm3 (0.84-5.20); LYMPHOCYTES PERCENT AUTO 28 % (21-46); MONOCYTES ABSOLUTE AUTO 0.46 K/mm3 (0.16-1.47); MONOCYTES PERCENT AUTO 8 % (4-13); Mean Corpuscular HGB 29.6 pg (26.0-34.0); Mean Corpuscular HGB Conc 34.7 g/dL (31.5-36.5); Mean Corpuscular Volume 85 fL (80-100); Mean Platelet Volume 8.7 fL (9.1-12.4); NEUTROPHILS ABSOLUTE AUTO 3.38 K/mm3 (1.96-9.15); NEUTROPHILS PERCENT AUTO 59 % (41-73); Platelet Count 168 K/mm3 (150-400); RDW Coefficient Variation 14.5 % (11.7-14.2); RDW Standard Deviation 45.1 fL (35.1-46.3); Red Blood Cell Count 4.02 M/mm3 (4.30-5.90); White Blood Cell Count 5.69 K/mm3 (4.00-11.30)
[2023-10-11 05:28] LABS: International Normalized Ratio 1.04; Prothrombin Time Results 10.9 Sec (9.7-11.5)
[2023-10-11 05:30] LABS: Albumin, Blood 3.8 g/dL (3.4-5.0); Albumin/Globulin Ratio 0.9 (0.8-1.8); Bilirubin, Total 0.4 mg/dL (0.1-1.0); Bun/Creatinine Ratio 16.3 (12.0-20.0); Calcium, Blood 9.3 mg/dL (8.5-10.1); Creatinine, Blood 0.55 mg/dL (0.60-1.20); Globulin, Blood 4.4 g/dL (2.2-4.0); Phosphorus, Blood 2.7 mg/dL (2.5-4.9); Potassium, Blood 4.2 mmol/L (3.5-5.5); Total Protein, Blood 8.2 g/dL (6.4-8.2)
[2023-10-11 05:30] LABS: Appearance, Urine Clear (Clear); Bilirubin, Urine Neg (Neg); Blood, Urine 3+ (Neg); Glucose Qualitative, Urine Neg (Neg); Ketones, Urine Neg (Neg); Leukocyte Esterase, Urine Neg (Neg); Nitrite, Urine Neg (Neg); Protein, Urine 3+ (Neg); Urobilinogen, Urine NORM (Normal)
[2023-10-11 05:57] LABS: Color, Urine Pale Yellow (P-Yellow)
[2023-10-11 05:58] LABS: Bacteria Not Seen /hpf; Squamous Epithelial Cells Not Seen /hpf (Few); White Blood Cells, Urine Not Seen /hpf (0-5)
[2023-10-11] MEDS ORDERED: LEVE500 PO (06:26)
[2023-10-11 06:30] VITALS: BP 175/63
[2023-10-11] MEDS ORDERED: THERA-D2000 UNIT PO (15:22)
[2023-10-11] MEDS ORDERED: Hair, Skin & N1 EACH PO (15:24)
[2023-10-11] MEDS ORDERED: LIDO700A20 TOP (15:24)
[2023-10-11] MEDS ORDERED: NEFA50 PO (15:25)
== END 2023-10-11 06:46 | disposition home or self-care (01) ==
LOC: ER 04:36
PROVIDERS: Emergency Medicine
DX: R56.9 Unspecified convulsions (principal); E86.0 Dehydration; Z88.8 Allergy status to other drugs, medicaments and biological substances; Z79.899 Other long term (current) drug therapy; Z79.82 Long term (current) use of aspirin; Z87.891 Personal history of nicotine dependence
CPT/HCPCS: 80053; 81001; 82550; 83605; 83735; 84100; 85025; 85610; 85730; 93005; 93010; 96365; 99284-25; J1953; J7030

== ENCOUNTER 2024-10-21 07:26 | Day surgery (SDC) | payer OTHER ==
[~2024-10-21 07:26] MED LIST changes: +Crestor20 MG PO; +Hair, Skin & N1 EACH PO; +LEVE500 PO; +LIDO700A20 TOP; +METO25 PO; +NEFA50 PO; +Ranitidine HCl150 M1 PO; +SODCHL1 PO; +THERA-D2000 UNIT PO
== END 2024-10-21 23:00 | disposition home or self-care (01) ==
LOC: CT 07:26
DX: I70.0 Atherosclerosis of aorta (principal); I25.10 Atherosclerotic heart disease of native coronary artery without angina pectoris; I35.0 Nonrheumatic aortic (valve) stenosis; I35.1 Nonrheumatic aortic (valve) insufficiency; I47.10 Supraventricular tachycardia, unspecified; I65.23 Occlusion and stenosis of bilateral carotid arteries; I10 Essential (primary) hypertension
CPT/HCPCS: 74175; Q9967